=== PATIENT | female | born 1965 | race Caucasian/White ===

== ENCOUNTER 2017-03-24 15:56 | Inpatient (IN) ==
[2017-03-24] MEDS ORDERED: SODIUM CHLORIDE 0.9% 500 ML IV STA (16:38)
[2017-03-24 17:12] LABS: Basophils % 0.4 % (0.0-0.8); Eosinophils # 0.1 10*3/uL (0.0-0.87); Eosinophils % 0.7 % (0.00-10.9); Hematocrit 30.2 VOL% (35.7-47.0); Hemoglobin 9.6 GM/DL (12.0-16.0); Immature Granulocytes % 0.5 %; Immature Granulocytes Absolute 0.04 #; Lymphocytes # 0.8 10*3/uL (1.4-4.0); Lymphocytes % 9.2 % (21.3-54.2); Mean Corpuscular HGB Conc 31.8 GM/DL (32-36); Mean Corpuscular Hemoglobin 28 PG (27-34); Mean Corpuscular Volume 86.8 FL (87-102); Mean Platelet Volume 8.4 FL (9.6-12.0); Monocytes # 0.5 10*3/uL (0.11-0.8); Monocytes % 6.2 % (1.7-12.7); Neutrophils # 6.9 10*3/uL (1.4-7.4); Platelet Count 456 T/CUMM (130-400); Red Blood Count 3.48 MC/CUMM (3.8-5.5); Red Cell Distribution Width 14.6 % (9.3-17.3); White Blood Count 8.3 T/CUMM (4-12)
--- NOTE | 2017-03-24 17:15 | XRay Report ---
Portable chest. Indication: Abdominal pain. No previous study. The heart is normal in size. The pulmonary vasculature is normal. The lung cummings are free of infiltrate. Surgical clips in the upper abdomen. Bilateral breast implants. Normal osseous structures. Impression: No acute abnormality. PROCEDURE INTERPRETED AT [facility] DEPARTMENT OF RADIOLOGY Final Report Signed by: Dr. Sonia Carreno
--- NOTE | 2017-03-24 17:30 | EKG Report ---
Stationary ECG Study [facility] ER Test Date: 03/24/2017 5:30:42 PM Pat Name: ADAMA XIONG Department: Room: Gender: F [employer] In[employer]: : 1965 Requested by: Freddy Rosen Order Number: [id number] Reading MD: RIYA COLON Intervals [place] Rate: 63 P: 79 MI: 141 QRS: 105 QRSD: 92 T: 31 QT: 424 QTc: 431 Interpretive Statements SINUS RHYTHM WITH OCCASIONAL SUPRAVENTRICULAR PREMATURE COMPLEXES MARKED RIGHT AXIS DEVIATION NONSPECIFIC T-WAVE ABNORMALITY Electronically Signed On 03-24-17 19:23:08 CDT by RIYA COLON [email or web address]
--- NOTE | 2017-03-24 17:32 | CT Report ---
CT of the abdomen and pelvis with intravenous contrast. No oral contrast was administered. Axial images were obtained with sagittal and coronal reconstructions. 100 cc Omni 350. Indication: Left upper quadrant abdominal pain. The heart is normal in size. The lung bases are clear. There are bilateral breast implants present. The liver is normal in size and density. The gallbladder has been removed. The intrahepatic ducts are mildly prominent. The common bile duct has a diameter of 9.6 mm. The pancreatic duct is perceptible, but not measurably enlarged. The pancreas is normal in size and enhances normally and uniformly. There is no adrenal enlargement. No renal abnormality is seen. The ureters are normal in course and caliber. The abdominal aorta is of normal caliber. The spleen is normal in size. There is no free air present within the peritoneal cavity. There is minimal free fluid noted. Postsurgical changes are seen around the area of the stomach. The loops of small intestine are not dilated. It is difficult to visualize the appendix due to the total lack of body fat. A portion of the appendix is seen and is of normal caliber and contains air. No definite inflammatory changes in the right lower quadrant. The terminal ileum presents a normal appearance. There is a large amount of fecal material throughout the length of the colon. The rectum is distended with gas. The urinary bladder is distended without wall thickening. No inguinal or iliac chain lymphadenopathy is seen. There is a grade 1 spondylolisthesis of L4 on L5. Degenerative changes are also present. Impression: 1. Prominence of the intrahepatic ducts and extrahepatic ducts, mild in severity. The patient is post cholecystectomy. Sometimes a mild degree of dilatation is seen after cholecystectomy. No definite cause of obstruction detected. 2. Constipation. 3. Small amount of free fluid within the peritoneal cavity. 4. Distention of the urinary bladder. The CT exam was performed using one or more of the following dose reduction techniques: Automated exposure control, adjustment of the mA and/or kV according to patient size, or use of iterative reconstruction technique. PROCEDURE INTERPRETED AT [facility] DEPARTMENT OF RADIOLOGY Final Report Signed by: Dr. Sonia Carreno
[2017-03-24 17:36] LABS: Apearance,Urine CLEAR (Clear); Bilirubin,Urine Negative (Negative); Blood, Urine Negative (Negative); Glucose,Urine (UA) Negative (Negative); Ketones,Urine Negative (Negative); Mucus,Urine Occasional /LPF (Occasional); Nitrite,Urine Negative (Negative); Protein,Urine 30 MG/DL; RBC,Urine 2 /HPF (0-4); Squamous Epithelial Cell,Urine Occasional /HPF (0-10); Urine Color Yellow (Yellow); Urine Specific Gravity 1.033 (1.001-1.035); Urine Urobilinogen < 2.0 EU/DL (0.2-1.0); WBC,Urine 1 /HPF (0-6)
[2017-03-24 17:42] LABS: Alanine Aminotransferase 9 U/L (13-56); Albumin 2.2 G/DL (3.4-5.0); Alkaline Phosphatase 153 U/L (45-117); Aspartate Amino Transferase 13 U/L (0-37); Bilirubin,Total < 0.39 MG/DL (0.2-1.0); Blood Urea Nitrogen 11 MG/DL (7-18); Calcium 8.2 MG/DL (8.5-10.1); Glucose 84 MG/DL (74-106); Magnesium 2.2 MG/DL (1.8-2.4); Osmolality,Calculated 283.8 MOS/KG (273-304); Potassium 3.4 MMOL/L (3.5-5.1); Sodium 144 MMOL/L (136-145); Total Protein 5.9 G/DL (6.4-8.3)
--- NOTE | 2017-03-24 17:58 | Emergency Department Note ---
Isra Dolan Hilary, am scribing for, and in the presence of, Freddy Delaney MD 16:42. Rhett Dolan Phillip K, MD, personally performed the services described in this documentation, ascribed by Margarette Dhaliwal in my presence, and it is both accurate and complete 758 . Arrival - Arrival Chief Complaint: Abdominal / Flank Pain Stated Complaint: abdominal pain ED Nursing Triage Note: Brought in per EMS from [facility] with c/o left upper quadrant abdominal pain onset approx 2 months ago. +nausea/ vomiting. Reports 40# weight loss over past 4 months. Has been seen at [place] [facility] twice recently and diagnosed with bowel obstructions and discharged home. History of gastric bypass in 1999. Mode of Arrival: Stretcher Limitations: No Limitations Source: Patient, RN Notes Reviewed - History of Present Illness HPI Narrative: Pt is a 51 y/o female brought into the ED via EMS from [facility] with c/o left abdominal pain which onset 3 months ago. She reports losing 50lbs in the last 4 months, has been to [place] [facility] twice and diagnosed with bowel obstruction via xray and discharged home. Pt confirms intermittent left abdominal pain, nausea, vomiting, chills, fever, pain worsens with movement. No other complaints or problems stated in the ED. Pt has a PMHx of Gastric bypass ( 1999), and stomach ulcer. Onset (ago): month(s) Consistency: intermittent Severity: severe Severity scale (1-10): 5 Date of Last Menstrual Period: hyst Allergies/Adverse Reactions: Allergies Allergy/AdvReac Type Severity Reaction Status Date / Time codeine Allergy Severe ANAPHYLAXIS Verified 03/24/17 16:23 Amoxicillin Allergy Intermediate ITCHING Verified 03/24/17 16:23 ketoprofen [From Orudis] AdvReac Intermediate Vomiting Verified 03/24/17 16:23 ondansetron AdvReac Intermediate HIVES Verified 03/24/17 16:23 [From Zofran (as hydrochloride)] Sulfa (Sulfonamide AdvReac Intermediate Nausea Verified 03/24/17 16:23 Antibiotics) Home Medications: Home Medications Medication Instructions Recorded Confirmed Type Butalb/Acetaminophen/Caffeine 1 each PO Q4H PRN 03/24/17 03/24/17 History [Kqmaqh-Levfmkky-Gizc 50-325-40] Levothyroxine Tab [Synthroid Tab] 75 mcg PO DAILY 03/24/17 03/24/17 History Pantoprazole Tab [Protonix Tab] 40 mg PO DAILY 03/24/17 03/24/17 History Promethazine Tab [Phenergan Tab] 25 mg PO DAILY 03/24/17 03/24/17 History tiZANidine [Zanaflex] 4 mg PO BEDTIME 03/24/17 03/24/17 History Review of System - Review of System 12 point system: reviewed and no additional remarkable complaints except as stated - Review of System Constitutional: Present: as per HPI, chills, fever, weight loss Gastrointestinal: Present: abdominal pain, nausea, vomiting Medical,Surgical,& Family Hx - Medical History Neurology: No history of: Seizures Gastrointestinal: History of: GI Problems (Stomach Ulcer) - Surgical History Abdominal Surgeries: Surgical HX of: Abdominal Surgery (Partial stomach resection for perferated ulcer), Appendectomy, Gastric Bypass Surgery Reproductive Surgeries: Surgical HX of;: Hysterectomy - Family History Family History: Reports;: Family Cancer (Pancreas) - Social History Smoking Status: Never smoker Frequency of Alcohol Use: None Type of Drug Use: None Exam Vital Signs: Vital Signs Temperature 99.0 F 03/24/17 17:07 Pulse Rate 80 03/24/17 17:07 Respiratory Rate 20 03/24/17 17:07 Blood Pressure 137/55 03/24/17 17:07 O2 Sat by Pulse Oximetry 97 03/24/17 15:56 - General General appearance: alert, in distress, cachectic - Head Head exam: Present: atraumatic, normocephalic - Eye Eye exam: Present: normal appearance, PERRL, EOMI - ENT ENT exam: Present: mucous membranes dry, TM's normal bilaterally. Absent: mucous membranes moist - Neck Neck exam: Present: full ROM, trachea midline. Absent: tenderness - Chest Chest inspection: Present: symmetric chest wall rise. Absent: tenderness - Respiratory Respiratory exam: Present: normal lung sounds bilaterally. Absent: respiratory distress - Cardiovascular Cardiovascular exam: Present: regular rate, irregular rhythm, normal heart sounds. Absent: murmur, rubs, gallop - Abdominal Exam Abdominal exam: Present: soft, tenderness (LUQ tenderness to palpation deferred to the right), normal bowel sounds. Absent: distention - Rectal Exam Rectal exam: Present: heme (+) stool - Extremities Exam Extremities exam: Present: full ROM. Absent: tenderness, pedal edema - Back Exam Back exam: Present: full ROM. Absent: tenderness - Neurological Exam Neurological exam: Present: alert, oriented X3, CN II-XII intact. Absent: motor sensory deficit - Psychiatric Psychiatric exam: Present: normal affect, normal mood - Skin Skin exam: Present: warm, dry, intact, normal color. Absent: rash Course Course Narrative: Patient discussed with the hospitalist Results - Labs CBC & BMP: 03/24/17 16:57 03/24/17 16:57 Lab Results: I have reviewed the patients labs Labs: Laboratory Tests 03/24/17 03/24/17 16:57 17:05 WBC 8.3 RBC 3.48 L Hgb 9.6 L Hct 30.2 L MCV 86.8 L MCHC 31.8 L Plt Count 456 H MPV 8.4 L Neut % (Auto) 83.0 H Lymph % (Auto) 9.2 L Lymph # (Auto) 0.8 L POC Creatinine 0.81 POC Estimated GFR (eGFR) > 60 Laboratory Tests 03/24/17 03/24/17 16:38 16:57 Sodium 144 Potassium 3.4 L Chloride 109 H Carbon Dioxide 29 BUN 11 Creatinine 0.50 L BUN/Creatinine Ratio 22.00 H Calcium 8.2 L ALT 9 L Alkaline Phosphatase 153 H Total Protein 5.9 L Albumin 2.2 L Globulin 3.7 H Albumin/Globulin Ratio 0.5 L Urine pH 5.0 Ur Specific [place] 1.033 Urine Protein 30 Urine Urobilinogen < 2.0 H Urine RBC 2 Urine WBC 1 - EKG EKG results: interpreted by ERMKorin, sinus rhythm (Nonspecific ST-T changes) - Diagnostic Findings Procedure: Chest x-ray: report reviewed by me (no acute abnormality), CT: report reviewed by me (ABDOMEN AND PELVIS: 1. Prominence of the intrahepatic ducts and extrahepatic ducts, mild in severity. The patient is post cholecystectomy. Sometiems a mild degree of dilatation is seen after cholecystectomy. No definite cause of obstruction detected. 2. Constipation 3. Small amount of free fluid within the peritoneal cavity 4. Distention of urinary bladder) Disposition Clinical Impression: Abdominal pain, Anemia, Weight loss questionable etiology Case discussed with: patient Disposition: Still a Patient Condition: Guarded Additional Instructions: Admit to the hospitalist
--- NOTE | 2017-03-24 18:42 | Hospitalist History & Physical ---
Assessment and Plan (1) Heme positive stool Status: Acute Current Visit: Yes (2) Chronic nausea and vomiting Status: Acute Current Visit: Yes (3) Abdominal pain Status: Acute Current Visit: Yes (4) Anemia Status: Acute Assessment and plan: Our plan for this patient will be admitting her to our service. She does have a heme positive stool do not feel this is acute. We will get GI to evaluate her. We will placed on a monitor and have her counts checked in the morning. Provide pain control. And nausea control. Check a KUB that has already been ordered reevaluate patient in the morning just plans appropriate Current Visit: Yes History of Present Illness Chief complaint: Abdominal pain History of present illness: Ms. Mcneil is a 51 year old female with past medical history significant for chronic back pain and abdominal pain who presents with a several month history of abdominal pain. She says for the past 4 months she has lost 50 pounds. She was seen at the [facility] on 03/13/2017 at that time she did have a CT scan that showed surgical changes from previous bariatric surgery are present and are somewhat difficult difficult to discern secondary to thickness of the axial slice acquisition. There is nonspecific evidence of bowel wall or gastric wall thickening to suggest inflammation. Multiple anastomosis is present without evidence of leakage distinct evidence of extraluminal fluid collection no acute findings. Patient was released from the emergency room was not admitted she has been dealing with the pain and went to the clinic today and was referred to our hospital from the clinic Home Medications Medication Instructions Recorded Confirmed Type Butalb/Acetaminophen/Caffeine 1 each PO Q4H PRN 03/24/17 03/24/17 History [Vekdvd-Tvzjykwl-Fzix 50-325-40] Levothyroxine Tab [Synthroid Tab] 75 mcg PO DAILY 03/24/17 03/24/17 History Pantoprazole Tab [Protonix Tab] 40 mg PO DAILY 03/24/17 03/24/17 History Promethazine Tab [Phenergan Tab] 25 mg PO DAILY 03/24/17 03/24/17 History tiZANidine [Zanaflex] 4 mg PO BEDTIME 03/24/17 03/24/17 History Allergies Allergy/AdvReac Type Severity Reaction Status Date / Time codeine Allergy Severe ANAPHYLAXIS Verified 03/24/17 16:23 Amoxicillin Allergy Intermediate ITCHING Verified 03/24/17 16:23 ketoprofen [From Orudis] AdvReac Intermediate Vomiting Verified 03/24/17 16:23 ondansetron AdvReac Intermediate HIVES Verified 03/24/17 16:23 [From Zofran (as hydrochloride)] Sulfa (Sulfonamide AdvReac Intermediate Nausea Verified 03/24/17 16:23 Antibiotics) Medical,Surgical,& Family Hx - Medical History Neurology: History of: Migraine No history of: Seizures Endocrine: History of: Thyroid Disorder Gastrointestinal: History of: GI Problems (Stomach Ulcer) Musculoskeletal: History of: Back/Neck Problems (chronic back pain) Hematology: History of: Anemia - Surgical History Abdominal Surgeries: Surgical HX of: Abdominal Surgery (Partial stomach resection for perferated ulcer), Appendectomy, Cholecystectomy, Gastric Bypass Surgery Reproductive Surgeries: Surgical HX of;: Breast Surgery (breast reduction/ breast implants), Hysterectomy - Family History Family History: Reports;: Family Cancer (Pancreas) - Social History Smoking Status: Never smoker Frequency of Alcohol Use: None Type of Drug Use: None 12 point system: reviewed and no additional remarkable complaints except as stated Exam - Constitutional Vitals: Period Temp Pulse Resp BP Sys/Mann Pulse Ox Last 24 Hr 99.0 F-99.0 F 80-80 20-20 137-137/55-55 97 General appearance: under weight - Head Head exam: Present: normal inspection - Eye Eye exam: Present: EOMI Pupils: Present: ROSIE - ENT ENT exam: Present: normal exam - Neck Neck exam: Present: normal inspection - Respiratory Respiratory exam: Present: clear to auscultation bilaterally - Cardiovascular Cardiovascular exam: Present: regular rate and rhythm - GI/Abdominal GI/Abdominal exam: Present: tenderness, other (Heme positive). Absent: rebound - Extremities Exam Extremities exam: Present: normal inspection - Back Exam Back exam: Present: normal inspection - Neurological Exam Neurological exam: Present: alert, oriented X3 - Psychiatric Psychiatric exam: Present: normal affect, normal mood Results - Labs CBC & BMP: 03/24/17 16:57 03/24/17 16:57
[2017-03-24] MEDS ORDERED: ACETAMINOPHEN 325 MG TABLET PO PRN (18:48)
[2017-03-24] MEDS ORDERED: PROMETHAZINE 25 MG/1 ML VIAL IM STA (18:51)
[2017-03-24] MEDS ORDERED: PROMETHAZINE 25 MG/1 ML VIAL ONE (19:28)
[2017-03-24] MEDS: DOCUSATE SODIUM 100 MG CAPSULE PO SCH (20:43)
[2017-03-24] MEDS: tiZANidine 4 MG TABLET PO SCH (20:43)
[2017-03-24] MEDS: POTASSIUM CHLORIDE INJ 20 MEQ in SODIUM CHLORIDE 0.45% 1,000 ML IV SCH (21:10)
[2017-03-25] MEDS: MORPHINE 2 MG/1 ML SYRINGE IV PRN ×2 (00:08→04:24)
[2017-03-25] MEDS: PROMETHAZINE 25 MG/1 ML VIAL IM PRN ×4 (04:22→20:36)
[2017-03-25 06:30] LABS: Basophils % 0.3 % (0.0-0.8); Eosinophils # 0.2 10*3/uL (0.0-0.87); Eosinophils % 2.1 % (0.00-10.9); Hematocrit 33.3 VOL% (35.7-47.0); Hemoglobin 10.6 GM/DL (12.0-16.0); Immature Granulocytes % 0.5 %; Immature Granulocytes Absolute 0.04 #; Lymphocytes # 1.1 10*3/uL (1.4-4.0); Lymphocytes % 14.6 % (21.3-54.2); Mean Corpuscular HGB Conc 31.8 GM/DL (32-36); Mean Corpuscular Hemoglobin 28 PG (27-34); Mean Corpuscular Volume 86.7 FL (87-102); Mean Platelet Volume 8.6 FL (9.6-12.0); Monocytes # 0.7 10*3/uL (0.11-0.8); Monocytes % 8.6 % (1.7-12.7); Neutrophils # 5.7 10*3/uL (1.4-7.4); Neutrophils % 73.9 % (38.7-73.9); Platelet Count 513 T/CUMM (130-400); Red Blood Count 3.84 MC/CUMM (3.8-5.5); Red Cell Distribution Width 14.7 % (9.3-17.3); White Blood Count 7.7 T/CUMM (4-12)
[2017-03-25 07:08] LABS: Albumin 2.3 G/DL (3.4-5.0); Bilirubin,Total 0.4 MG/DL (0.2-1.0); Calcium 8.6 MG/DL (8.5-10.1)
[2017-03-25] MEDS: HYDROmorphone 2 MG/1 ML VIAL IV PRN ×4 (08:03→20:34)
[2017-03-25] MEDS ORDERED: PANTOPRAZOLE 40 MG TABLET PO SCH (09:00)
--- NOTE | 2017-03-25 09:19 | XRay Report ---
KUB portable. Indication: Generalized abdominal pain. The heart is normal in size. The lung bases are clear. There is considerable fecal material within the colon. Numerous surgical clips are present. Possible air in the urinary bladder. Osseous structures are unremarkable. Impression: Persistent findings of constipation. Possible air in the urinary bladder. The bladder was distended yesterday. Has the patient been catheterized? PROCEDURE INTERPRETED AT [facility] DEPARTMENT OF RADIOLOGY Final Report Signed by: Dr. Sonia Carreno
[2017-03-25] MEDS ORDERED: MAGNESIUM CITRATE 300 ML BOTTLE PO ONE (09:54)
[2017-03-25] MEDS: POTASSIUM CHLORIDE INJ 20 MEQ in SODIUM CHLORIDE 0.45% 1,000 ML IV SCH ×2 (11:06→21:05)
--- NOTE | 2017-03-25 11:28 | Hospitalist Progress Note ---
Assessment and Plan (1) Abdominal pain Status: Acute Assessment and plan: not an acute abdomen per Dr. Flores, may have ulcers. GI cocktail, calmed down on dilaudid. Cont protonix bid, Dr. Reid consulted, [place] for distended bladder. Current Visit: Yes (2) Narcotic dependency, continuous Status: Acute Current Visit: Yes (3) Anemia Status: Acute Assessment and plan: stable Current Visit: Yes (4) Heme positive stool Status: Acute Assessment and plan: full of stool due to narcotics, miralax and mag citrate. Current Visit: Yes (5) Chronic nausea and vomiting Status: Acute Assessment and plan: controlled with phenergan, cont protonix, hx of bypass surgery. dr. Reid consulted Current Visit: Yes Hospitalist: Subjective Interval history: Called by nursing early this morning the patient was in excruciating pain that was not relieved with morphine. Patient chronically sees Dr. Morataya. She has had bypass surgery before and I have discussed her case with Dr. Flores personally. He reports a lot of these patients have problems with ulcers following the surgeries. But her amount of pain is out of proportion to the way patient should act with ulcer pain. Patient does not have an acute abdomen per Dr. Flores. Exam - Constitutional Vitals: Period Temp Pulse Resp BP Sys/Mann Pulse Ox Last 24 Hr 97.6 F-99.0 F 50-82 16-20 124-137/55-70 93-97 Exam: Heart Rate-[RRR] Lungs-[CTAB] GI-[+bs tender in the left upper quadrant Ext-[no edema] Neuro [Motor 5/5], [alert and oriented times 3] psych [agitated mood and affect] General [ acute emotional distress] Results - Labs CBC & BMP: 03/25/17 06:07 03/25/17 06:07 Lab Results: I have reviewed the past 24 hour labs - Diagnostic Findings Procedure: KUB x-ray: report reviewed by me (A lot of stool), CT Abdomen and Pelvis: report reviewed by me (Prominence of the intrahepatic and extrahepatic ducts and severe constipation and distention of the urinary bladder) Quality Measures - VTE Contraindication to Pharmacological VTE Prophylaxis: Active Bleeding
[2017-03-25] MEDS ORDERED: POLYETHYLENE GLYCOL POWDER 255 GM BOTTLE PO ONE (11:35)
--- NOTE | 2017-03-25 11:49 | General Surgery Consult Note ---
Assessment and Plan (1) Abdominal pain Status: Acute Assessment and plan: This does not represent a surgical abdomen. I think the most likely etiology would probably be ulcer disease since she has had this before she has had a gastric bypass. GI has already been consulted. We will add Carafate and Protonix to see if this helps at all in the meantime. I am also going to order vitamin supplementation and IV fluids given the patient's apparent malnutrition with underweight status and deficiencies can be pretty severe with gastric bypass patient does not keep up with her vitamin needs. Current Visit: Yes History of Present Illness Chief complaint: Abdominal pain History of present illness: Ms. Mcneil is a 51 year old female with a history of chronic pain as well as gastric bypass with history of ulcer disease at her anastomotic sites who presents to the hospital with abdominal pain. CT scan showed multiple anastomosis from gastric bypass but no evidence of obstruction. The patient had a normal lipase and normal bilirubin. She has had a cholecystectomy and has some expected bile duct dilation secondary to this. Her pain is mostly located in the left upper quadrant she says it feels different than the ulcer disease she has had in the past. Home Medications Medication Instructions Recorded Confirmed Type Butalb/Acetaminophen/Caffeine 1 each PO Q4H PRN 03/24/17 03/25/17 History [Jhayjr-Gnirdplw-Jnhy 50-325-40] Levothyroxine Tab [Synthroid Tab] 75 mcg PO DAILY 03/24/17 03/25/17 History Pantoprazole Tab [Protonix Tab] 40 mg PO DAILY 03/24/17 03/25/17 History Promethazine Tab [Phenergan Tab] 25 mg PO DAILY 03/24/17 03/25/17 History tiZANidine [Zanaflex] 4 mg PO BEDTIME 03/24/17 03/25/17 History Albuterol Sulfate [Proair HFA] 90 mcg INH QID PRN 03/25/17 03/25/17 History Sucralfate Liquid [Carafate Liquid] 1 gm PO QID 03/25/17 03/25/17 History fentaNYL 25 MCG/HR PATCH 1 each TRANSDERM Q3DAY 03/25/17 03/25/17 History [Duragesic 25 Patch] Allergies Allergy/AdvReac Type Severity Reaction Status Date / Time codeine Allergy Severe ANAPHYLAXIS Verified 03/24/17 16:23 Amoxicillin Allergy Intermediate ITCHING Verified 03/24/17 16:23 ketoprofen [From Orudis] AdvReac Intermediate Vomiting Verified 03/24/17 16:23 ondansetron AdvReac Intermediate HIVES Verified 03/24/17 16:23 [From Zofran (as hydrochloride)] Sulfa (Sulfonamide AdvReac Intermediate Nausea Verified 03/24/17 16:23 Antibiotics) Medical,Surgical,& Family Hx - Medical History Cardio: Comment Only: Cardiovascular Problems (pt states," I have a heart murrmur) Neurology: History of: Migraine No history of: Seizures Endocrine: History of: Thyroid Disorder Gastrointestinal: History of: GI Problems (Stomach Ulcer) Musculoskeletal: History of: Back/Neck Problems (chronic back pain) Hematology: History of: Anemia - Surgical History Abdominal Surgeries: Surgical HX of: Abdominal Surgery (Partial stomach resection for perferated ulcer), Appendectomy, Cholecystectomy, Gastric Bypass Surgery Reproductive Surgeries: Surgical HX of;: Breast Surgery (breast reduction/ breast implants), Hysterectomy Orthopedic Surgeries: Surgical HX of;: Orthopedic Surgery (ankle surgery 2007) - Family History Family History: Reports;: Family Cancer (Pancreas), Family Heart Disease (both sides of family), Family Stroke (both sides of family) - Social History Smoking Status: Never smoker Frequency of Alcohol Use: None Type of Drug Use: None - Constitutional Constitutional: Present: as per HPI - EENT Nose, mouth and throat: Present: as per HPI - Cardiovascular Cardiovascular: Present: as per HPI - Respiratory Respiratory: Present: as per HPI - Gastrointestinal Gastrointestinal: Present: as per HPI - Genitourinary Genitourinary: Present: as per HPI - Musculoskeletal Musculoskeletal: Present: as per HPI - Neurological Neurological: Present: as per HPI - Endocrine Endocrine: Present: as per HPI Hematologic/Lymphatic: Present: as per HPI Exam - Constitutional Vitals: Period Temp Pulse Resp BP Sys/Mann Pulse Ox Last 24 Hr 97.6 F-99.0 F 50-82 16-20 124-137/55-70 93-97 General appearance: no acute distress, under weight - Head Head exam: Present: normal inspection, normocephalic - Eye Eye exam: Present: EOMI Pupils: Present: ROSIE - ENT ENT exam: Present: normal exam Mouth exam: Present: normal external inspection, normal voice - Neck Neck exam: Present: normal inspection, trachea midline - Respiratory Respiratory exam: Present: clear to auscultation bilaterally. Absent: accessory muscle use, chest wall tenderness - Cardiovascular Cardiovascular exam: Present: RRR. Absent: systolic murmur, tachycardia - GI/Abdominal GI/Abdominal exam: Present: tenderness (Tenderness in the left upper quadrant with no peritoneal signs), soft. Absent: guarding, rebound - Extremities Exam Extremities exam: Present: normal inspection, normal capillary refill - Back Exam Back exam: Present: normal inspection - Neurological Exam Neurological exam: Present: alert, oriented X3 Speech: Present: normal - Skin Skin exam: Present: normal color, warm Quality Measures - VTE Contraindication to Pharmacological VTE Prophylaxis: Active Bleeding Results - Labs CBC & BMP: 03/25/17 06:07 03/25/17 06:07 - Diagnostic Findings Procedure: CT Abdomen and Pelvis: image reviewed by me, report reviewed by me ( No acute pathology seen)
[2017-03-25] MEDS ORDERED: THIAMINE INJ 100 MG, FOLIC ACID INJ 1 MG, MULTIVITAMIN INJ 10 ML in SODIUM CHLORIDE 0.9... IV ONE (12:50)
--- NOTE | 2017-03-25 13:52 | Gastrointestinal Consult Note ---
Assessment and Plan - Time spent with patient Time spent with patient: Greater than 30 minutes (1) Abdominal pain Status: Acute Current Visit: Yes (2) Other specified counseling Status: Acute Current Visit: Yes History of Present Illness History of present illness: Ms. Mcneil is a 51 year old female Home Medications Medication Instructions Recorded Confirmed Type Butalb/Acetaminophen/Caffeine 1 each PO Q4H PRN 03/24/17 03/25/17 History [Avyvrf-Nacwsxcf-Kiib 50-325-40] Levothyroxine Tab [Synthroid Tab] 75 mcg PO DAILY 03/24/17 03/25/17 History Pantoprazole Tab [Protonix Tab] 40 mg PO DAILY 03/24/17 03/25/17 History Promethazine Tab [Phenergan Tab] 25 mg PO DAILY 03/24/17 03/25/17 History tiZANidine [Zanaflex] 4 mg PO BEDTIME 03/24/17 03/25/17 History Albuterol Sulfate [Proair HFA] 90 mcg INH QID PRN 03/25/17 03/25/17 History Sucralfate Liquid [Carafate Liquid] 1 gm PO QID 03/25/17 03/25/17 History fentaNYL 25 MCG/HR PATCH 1 each TRANSDERM Q3DAY 03/25/17 03/25/17 History [Duragesic 25 Patch] Allergies Allergy/AdvReac Type Severity Reaction Status Date / Time codeine Allergy Severe ANAPHYLAXIS Verified 03/24/17 16:23 Amoxicillin Allergy Intermediate ITCHING Verified 03/24/17 16:23 ketoprofen [From Orudis] AdvReac Intermediate Vomiting Verified 03/24/17 16:23 ondansetron AdvReac Intermediate HIVES Verified 03/24/17 16:23 [From Zofran (as hydrochloride)] Sulfa (Sulfonamide AdvReac Intermediate Nausea Verified 03/24/17 16:23 Antibiotics) Medical,Surgical,& Family Hx - Medical History Cardio: Comment Only: Cardiovascular Problems (pt states," I have a heart murrmur) Neurology: History of: Migraine No history of: Seizures Endocrine: History of: Thyroid Disorder Gastrointestinal: History of: GI Problems (Stomach Ulcer) Musculoskeletal: History of: Back/Neck Problems (chronic back pain) Hematology: History of: Anemia - Surgical History Abdominal Surgeries: Surgical HX of: Abdominal Surgery (Partial stomach resection for perferated ulcer), Appendectomy, Cholecystectomy, Gastric Bypass Surgery Reproductive Surgeries: Surgical HX of;: Breast Surgery (breast reduction/ breast implants), Hysterectomy Orthopedic Surgeries: Surgical HX of;: Orthopedic Surgery (ankle surgery 2007) - Family History Family History: Reports;: Family Cancer (Pancreas), Family Heart Disease (both sides of family), Family Stroke (both sides of family) - Social History Smoking Status: Never smoker Frequency of Alcohol Use: None Type of Drug Use: None Exam - Constitutional Vitals: Period Temp Pulse Resp BP Sys/Mann Pulse Ox Last 24 Hr 97.6 F-99.0 F 50-82 16-20 124-137/55-70 93-97 Results - Labs CBC & BMP: 03/25/17 06:07 03/25/17 06:07 Quality Measures - VTE Contraindication to Pharmacological VTE Prophylaxis: Active Bleeding Note Addendum: PLEASE NOTE -- automatic citation of patient information is unavoidable in this electronic note. I have made a reasonable effort to review the information cited , but it is not a part of my evaluation, impression, or recommendation unless specifically discussed in the dictated text that follows. As well, voice recognition software was used in the creation of this clinical note. Reasonable effort was made to identify and correct gross errors. Despite proofreading, errors in administrative assistant may be present, including nonsense verbiage at times. If you encounter such an error, please contact me at for discussion and correction. -- Jeanette Chief complaint: abdominal pain, positive fecal occult blood test History of present illness: This is a new patient, a 51-year-old female seen by consultation for evaluation of abdominal pain. The patient is admitted to the hospitalist service under the care of Dr. Abrams with diagnoses of nausea and vomiting, abdominal pain, anemia, indicating positive stools. The patient was admitted yesterday through the emergency department with primary complaint of abdominal pain for several months. Evaluation at that time revealed mild anemia with hemoglobin less than 10 g/dL mild elevation in alkaline phosphatase, and intra/extrahepatic dilation of the biliary system, minimal, status post cholecystectomy. The patient reports a visit to the emergency department at [place] about two weeks ago with similar complaints. CT scan at that time revealed surgical changes from a previous surgery as well as nonspecific evidence of small bowel or gastric wall thickening. The patient has not had follow-up since that emergency department visit. She has been treated, primarily, supportively since her admission and now reports that the pain persists. She notes that it has been going on constantly for at least two months, sharp quality, severe, waxing/waiting over the course of any particular day, unrelieved by any identifiable measure, unrelated to body position, and equivocal he exacerbated by PO intake. She has also had significant nausea and vomiting during this period and notes that she has lost 50 pounds over the last several months ( baseline 140 pounds about one year ago). 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 She does not recall any francisco javier-surgical complications but does note that she had a stomach ulcer requiring surgical revision about five years ago. She also notes that she was severely malnourished at that time. She has not had upper endoscopy since that event five years ago. She had colonoscopy about 25 years ago with no finding. Patient denies fever, chills, night sweats, rigors, headache, dizziness, neck pain, visual changes, redness of the eyes, dysphagia, odynophagia, difficulty chewing, chest pain, shortness of breath, hematemesis, diarrhea, hematochezia, melena, proctalgia, constipation, change in bowel pattern generally, dysuria, skin changes, temperature regulation issues, flushing, easy bleeding/bruising, musculoskeletal pain, mental status change, numbness/weakness in the extremities , yellowing of the eyes/skin, cutaneous eruptions, and other complaints in general. Review of systems: 12 point review of systems was negative except as documented above. Outpatient medications: Fioricet, Synthroid, Protonix, Phenergen, Zanaflex Inpatient medications: reviewed Past Medical History: migraine, thyroid disorder, gastric ulcer status post partial gastrectomy, chronic back pain, anemia Social history: negative tobacco. Negative alcohol Family history: pancreatic cancer in Physical examination: Vital Signs: Current vital signs reviewed and documented above. General Appearance: Cachectic, uncomfortable appearing, lying in bed, conversant , no acute distress. Head: Normocephalic. Neck: Palpation of the neck revealed no abnormalities. Eyes: No scleral icterus. No scleral injection. No conjunctival pallor. Oral Cavity: Odor of breath was normal. No drooling was observed. Lips showed no abnormalities. Floor of the mouth showed no abnormalities. Pharynx: Oropharynx was normal. Lungs: Respiration rhythm and depth was normal. Cardiovascular: Heart rate and rhythm were normal. Abdomen: abdomen was not distended. Abdominal palpation revealed diffuse tenderness with voluntary guarding but no hepatosplenomegaly. Ascites was not discovered. Abdominal auscultation revealed positive bowel sounds. Musculoskeletal System: Musculoskeletal system was grossly normal. Neurological: level of consciousness was normal. Speech was normal. Skin: General appearance was normal. Color and pigmentation were normal. No skin lesions. Laboratory: white blood count 7.7, hemoglobin 10.6, platelets 513, ALT 12, AST 20, phosphatase 177, total protein 6.0, albumin 2.3, lipase 162 Radiology: CT of the abdomen and pelvis -- mild dilation of the interest/ extrahepatic bile ducts; absent gallbladder; significant retain stool in the large intestine Impressions: 1. Abdominal pain -- the differential diagnosis includes peptic ulcer, gastritis /esophagitis generally, gastric outlet obstruction (partial or complete), pancreatic or biliary disease, and functional abdominal pain. CT scan was non- diagnostic. The next most reasonable study would be endoscopic evaluation. We will plan this for Monday. In the interim, I recommend continued proton inhibitor, clear liquid diet to the extent tolerated, and continued supportive care. 2. Malnutrition -- the patient has lost 50 pounds, by her report, over the past year, perhaps even over the past two months. She is cachectic with complete loss of mesenteric fat and other fat pads. This has the potential to lead to poor gut flow with adjacent structures impinging on lumen, particularly in the setting of multiple abdominal surgeries. I recommend aggressive nutritional management both during this admission and in the outpatient setting. If patient continues unable to take oral intake, TPN should be considered. 3. other specified counseling -- The patient was seen for greater than 30 minutes. The patient was counseled for greater than 50% of this time regarding differential diagnosis, likely diagnosis, diagnostic and therapeutic alternatives, risks/benefits/alternatives of medications and procedures, and plan of care generally. The patient expressed understanding and wishes to proceed. Recommendations: -- aggressive volume and electrolyte management -- continue proton pump inhibitor -- upper endoscopy with timing based on clinical progress, likely Monday -- clear liquid diet as tolerated -- aggressive nutritional management both during this admission and after discharge -- consider initiation of TPN -- thank you for this consultation. We will follow with you
[2017-03-25] MEDS: LEVOTHYROXINE 75 MCG TABLET PO SCH (15:26)
[2017-03-25] MEDS: PROMETHAZINE 25 MG TABLET PO SCH (15:26)
[2017-03-25] MEDS: DOCUSATE SODIUM 100 MG CAPSULE PO SCH ×2 (15:26→20:34)
[2017-03-25] MEDS: ALUM/MAG/SIMETH/LIDO VISC 1:1 30 ML BOTTLE PO SCH ×3 (17:06→22:54)
[2017-03-25] MEDS: SUCRALFATE 1 GM/10 ML UDCUP PO SCH (17:44)
[2017-03-25] MEDS: tiZANidine 4 MG TABLET PO SCH (20:34)
[2017-03-25] MEDS: PANTOPRAZOLE 40 MG TABLET PO SCH (20:37)
[2017-03-26] MEDS: HYDROmorphone 2 MG/1 ML VIAL IV PRN ×4 (01:23→21:10)
[2017-03-26] MEDS: ALUM/MAG/SIMETH/LIDO VISC 1:1 30 ML BOTTLE PO SCH ×4 (05:13→23:20)
[2017-03-26] MEDS: PROMETHAZINE 25 MG/1 ML VIAL IM PRN ×2 (05:13→14:55)
[2017-03-26] MEDS: PANTOPRAZOLE 40 MG TABLET PO SCH ×2 (09:15→21:10)
[2017-03-26] MEDS: DOCUSATE SODIUM 100 MG CAPSULE PO SCH ×2 (09:15→21:10)
[2017-03-26] MEDS: PROMETHAZINE 25 MG TABLET PO SCH (09:15)
[2017-03-26] MEDS: SUCRALFATE 1 GM/10 ML UDCUP PO SCH ×2 (09:15→17:10)
[2017-03-26] MEDS: LEVOTHYROXINE 75 MCG TABLET PO SCH (09:15)
--- NOTE | 2017-03-26 09:27 | General Surgery Progress Note ---
Assessment and Plan (1) Abdominal pain Status: Acute Assessment and plan: No surgical intervention is planned. Agree with endoscopy tomorrow. Current Visit: Yes Subjective Patient reports: Present: no new complaints, still having pain, afebrile Exam - Constitutional Vitals: Period Temp Pulse Resp BP Sys/Mann Pulse Ox Last 24 Hr 97 F-98.4 F 67-83 16-20 95-124/61-71 95-98 General appearance: under weight - Head Head exam: Present: normal inspection, normocephalic - Eye Eye exam: Present: EOMI Pupils: Present: RSOIE - ENT ENT exam: Present: normal exam Mouth exam: Present: normal external inspection, normal voice - Neck Neck exam: Present: normal inspection, trachea midline - Respiratory Respiratory exam: Present: clear to auscultation bilaterally. Absent: accessory muscle use, chest wall tenderness - Cardiovascular Cardiovascular exam: Present: RRR. Absent: systolic murmur, tachycardia - GI/Abdominal GI/Abdominal exam: Present: normal bowel sounds, guarding, tenderness (Left upper quadrant tenderness focal), soft. Absent: rebound - Extremities Exam Extremities exam: Present: normal inspection, normal capillary refill - Back Exam Back exam: Present: normal inspection - Neurological Exam Neurological exam: Present: alert, oriented X3 Speech: Present: normal - Skin Skin exam: Present: normal color, warm Results - Labs CBC & BMP: 03/25/17 06:07 03/25/17 06:07 Quality Measures - VTE Contraindication to Pharmacological VTE Prophylaxis: Active Bleeding
[2017-03-26] MEDS ORDERED: oxyCODONE/ACETAMINOPHEN 5-325 MG TABLET PO PRN (09:47)
[2017-03-26] MEDS ORDERED: MORPHINE 2 MG/1 ML SYRINGE IV PRN (09:47)
--- NOTE | 2017-03-26 10:36 | Hospitalist Progress Note ---
Assessment and Plan (1) Abdominal pain Status: Acute Assessment and plan: cont GI cocktail, EGD in am, morphone alternating with percocet Current Visit: Yes (2) Narcotic dependency, continuous Status: Acute Assessment and plan: see HPI Current Visit: Yes (3) Anemia Status: Acute Assessment and plan: stable, will check iron studies and b12 and mg. noncompliance with vitamins Current Visit: Yes (4) Chronic nausea and vomiting Status: Acute Assessment and plan: resolved, patient had bypass in 1999. Advance to full liquids. Current Visit: Yes Hospitalist: Subjective Interval history: Dr. Flores is seen her today. When he walked in she was texting and smiling but immediately started asking for pain medicines when she saw him. Patient may have an ulcer in an EGD is warranted in a.m. I have spoken with Dr. Reid. We do not intend to put her on TPN. Patient will be discharged after EGD. She is narcotic seeking and narcotic addicted. We are switching from Dilaudid to morphine and her request. She wanted 10 mg of morphine which is way too much. Her pain is chronic more than acute. Ulcers are not treated with narcotics. She should be discharged as soon as possible Exam - Constitutional Vitals: Period Temp Pulse Resp BP Sys/Mann Pulse Ox Last 24 Hr 97 F-98.4 F 67-83 16-20 95-124/61-71 95-98 Exam: Heart Rate-[RRR] Lungs-[CTAB] GI-[+bs tender in the left upper quadrant Ext-[no edema] Neuro [Motor 5/5], [alert and oriented times 3] psych [normal mood and affect] General [ no acute emotional distress] Results - Labs CBC & BMP: 03/25/17 06:07 03/25/17 06:07 Lab Results: I have reviewed the past 24 hour labs Quality Measures - VTE Contraindication to Pharmacological VTE Prophylaxis: Active Bleeding
[2017-03-26] MEDS: POTASSIUM CHLORIDE INJ 20 MEQ in SODIUM CHLORIDE 0.45% 1,000 ML IV SCH ×2 (10:38→21:13)
[2017-03-26 10:58] LABS: % Iron Saturation 11.7 % (18-50); Magnesium 2.5 MG/DL (1.8-2.4)
[2017-03-26 11:09] LABS: Folate 17.5 NG/ML (5.4-24.0)
--- NOTE | 2017-03-26 11:32 | Gastrointestinal Progress Note ---
Assessment and Plan (1) Abdominal pain Status: Acute Current Visit: Yes (2) Malnutrition Status: Acute Current Visit: Yes (3) Other specified counseling Status: Acute Current Visit: Yes Exam (Progress Note) - Constitutional Vitals: Period Temp Pulse Resp BP Sys/Mann Pulse Ox Last 24 Hr 97 F-98.4 F 65-83 16-20 95-117/61-71 95-98 Results - Labs CBC & BMP: 03/25/17 06:07 03/25/17 06:07 Note Addendum: PLEASE NOTE -- automatic citation of patient information is unavoidable in this electronic note. I have made a reasonable effort to review the information cited , but it is not a part of my evaluation, impression, or recommendation unless specifically discussed in the dictated text that follows. As well, voice recognition software was used in the creation of this clinical note. Reasonable effort was made to identify and correct gross errors. Despite proofreading, errors in technical support agent may be present, including nonsense verbiage at times. If you encounter such an error, please contact me at for discussion and correction. -- Jeanette Chief complaint: abdominal pain, positive fecal occult blood test History of present illness: This is a follow-up patient, a 51-year-old female seen for evaluation of abdominal pain. The patient reports continued pain in a similar pattern as previously described. She is taking some oral nutrition. She has no bowel movements noted. Review of systems: 12 point review of systems was negative except as documented above. Medications: Tylenol, Colace, Synthroid, G.I. cocktail, morphine sulfate, Percocet, Protonix, potassium chloride, Phenergen, Carafate, Zanaflex Physical examination: Vital Signs: Current vital signs reviewed and documented above. General Appearance: Cachectic, uncomfortable appearing, lying in bed, conversant , no acute distress. Head: Normocephalic. Neck: Palpation of the neck revealed no abnormalities. Eyes: No scleral icterus. No scleral injection. No conjunctival pallor. Oral Cavity: Odor of breath was normal. No drooling was observed. Lips showed no abnormalities. Floor of the mouth showed no abnormalities. Pharynx: Oropharynx was normal. Lungs: Respiration rhythm and depth was normal. Cardiovascular: Heart rate and rhythm were normal. Abdomen: abdomen was not distended. Abdominal palpation revealed diffuse tenderness with voluntary guarding but no hepatosplenomegaly. Ascites was not discovered. Abdominal auscultation revealed positive bowel sounds. Musculoskeletal System: Musculoskeletal system was grossly normal. Neurological: level of consciousness was normal. Speech was normal. Skin: General appearance was normal. Color and pigmentation were normal. No skin lesions. Laboratory: reviewed Radiology: CT of the abdomen and pelvis -- mild dilation of the interest/ extrahepatic bile ducts; absent gallbladder; significant retain stool in the large intestine Impressions: 1. Abdominal pain -- the differential diagnosis is unchanged. We will plan upper endoscopy tomorrow Monday. In the interim, I recommend continued proton inhibitor, clear liquid diet to the extent tolerated, and continued supportive care. 2. Malnutrition -- the patient has lost 50 pounds, by her report, over the past year, perhaps even over the past two months. She is cachectic with complete loss of mesenteric fat and other fat pads. This has the potential to lead to poor gut flow with adjacent structures impinging on lumen, particularly in the setting of multiple abdominal surgeries. I recommend aggressive nutritional management both during this admission and in the outpatient setting. If patient continues unable to take oral intake, TPN should be considered. 3. other specified counseling -- The patient was seen for less than 30 minutes. The patient was counseled for greater than 50% of this time regarding differential diagnosis, likely diagnosis, diagnostic and therapeutic alternatives, risks/benefits/alternatives of medications and procedures, and plan of care generally. The patient expressed understanding and wishes to proceed. Recommendations: -- aggressive volume and electrolyte management -- continue proton pump inhibitor -- upper endoscopy Monday -- clear liquid diet as tolerated -- aggressive nutritional management both during this admission and after discharge -- consider initiation of TPN if patient is unable to tolerate PO intake -- thank you for this consultation. Dr. Kim will assume G.I. care for this patient tomorrow.
[2017-03-26] MEDS: tiZANidine 4 MG TABLET PO SCH (21:10)
[2017-03-26] MEDS ORDERED: SODIUM CHLORIDE 0.9% 1,000 ML IV ONE (23:41)
[2017-03-27 00:25] LABS: Basophils % 0.5 % (0.0-0.8); Eosinophils # 0.1 10*3/uL (0.0-0.87); Eosinophils % 1.1 % (0.00-10.9); Hematocrit 26.6 VOL% (35.7-47.0); Hemoglobin 8.5 GM/DL (12.0-16.0); Immature Granulocytes % 0.3 %; Immature Granulocytes Absolute 0.02 #; Lymphocytes # 0.9 10*3/uL (1.4-4.0); Lymphocytes % 14.6 % (21.3-54.2); Mean Corpuscular Hemoglobin 28 PG (27-34); Mean Corpuscular Volume 88.7 FL (87-102); Mean Platelet Volume 8.7 FL (9.6-12.0); Monocytes # 0.4 10*3/uL (0.11-0.8); Monocytes % 6.8 % (1.7-12.7); Neutrophils # 4.7 10*3/uL (1.4-7.4); Neutrophils % 76.7 % (38.7-73.9); Platelet Count 444 T/CUMM (130-400); Red Cell Distribution Width 14.4 % (9.3-17.3); White Blood Count 6.2 T/CUMM (4-12)
[2017-03-27] MEDS ORDERED: SODIUM CHLORIDE 0.9% 1,000 ML IV ONE (01:40)
[2017-03-27] MEDS: POTASSIUM CHLORIDE INJ 20 MEQ in SODIUM CHLORIDE 0.45% 1,000 ML IV SCH (01:53)
[2017-03-27] MEDS: ALUM/MAG/SIMETH/LIDO VISC 1:1 30 ML BOTTLE PO SCH ×5 (05:01→21:31)
[2017-03-27] MEDS: SUCRALFATE 1 GM/10 ML UDCUP PO SCH ×2 (07:53→15:34)
[2017-03-27] MEDS: HYDROmorphone 2 MG/1 ML VIAL IV PRN ×4 (08:00→21:17)
[2017-03-27] MEDS: PANTOPRAZOLE 40 MG TABLET PO SCH (08:17)
[2017-03-27] MEDS: DOCUSATE SODIUM 100 MG CAPSULE PO SCH ×2 (08:17→21:17)
[2017-03-27] MEDS: PROMETHAZINE 25 MG TABLET PO SCH (08:17)
[2017-03-27] MEDS: LEVOTHYROXINE 75 MCG TABLET PO SCH (08:17)
[2017-03-27] MEDS: PROMETHAZINE 25 MG/1 ML VIAL IM PRN ×3 (10:30→21:20)
[2017-03-27] MEDS ORDERED: fentaNYL 100 MCG/2 ML VIAL ONE (11:48)
[2017-03-27] MEDS ORDERED: PROPOFOL 200 MG/20 ML VIAL IV ONE (12:18)
[2017-03-27] MEDS ORDERED: LIDOCAINE 2% 5 ML VIAL ONE (12:18)
--- NOTE | 2017-03-27 12:27 | History and Physical Update ---
History and Physical Update - Physical Exam Mental Status: alert and oriented Heart: regular rate and rhythm Lung: clear to auscultation Abdomen: within normal limits Vitals: within normal limits
--- NOTE | 2017-03-27 12:30 | Operative Note ---
Date of procedure: 03/27/17 Pre-op diagnosis: Abdominal pain with weight loss and nausea and vomiting Procedure: EGD 51-year-old female with persistent abdominal pain weight loss nausea and vomiting has a reported history of partial gastrectomy in the past. She is now for upper endoscopy to further evaluate. Informed symptoms obtained the patient She was sedated with MAC anesthesia per anesthesia protocol. Patient placed left lateral decubitus position the Olympus flexible video upper endoscope is her lower cavity under direct vision the esophagus intubated. Findings: Esophagus-normal esophageal mucosa with no evidence of esophagitis stricture or varices or Griffith's. Stomach-partial gastrectomy with approximately 35% stomach remaining. It appears she has a Amor-en-Y anastomosis with a blind limb as well as the intact jejunum. There is significant ulceration involving the circumferential area of the anastomosis almost 360. [address] are in place the appear to be endoclips that were placed previously I am unsure of when. Remaining small intestine appears normal beyond this area raising question of ischemia. No bleeding was observed The procedure terminated placed our procedure well Postop diagnosis: 1. Ulceration at gastrojejunal anastomosis question ischemic versus nonsteroidal versus acid peptic. Continue with IV PPI treatment. This likely will require surgical revision. We will try to ascertain were previous endoscopy were done and prior existing clips were placed and when. Anesthesia: MAC Surgeon / Physician: Jason Kim Estimated blood loss: none Specimens: none sent Condition: stable Disposition: post procedure unit Results - Labs CBC & BMP: 03/26/17 23:52 03/25/17 06:07 Discharge Plan - Discharge Medications No Action Promethazine Tab [Phenergan Tab] 25 mg PO DAILY Pantoprazole Tab [Protonix Tab] 40 mg PO DAILY Butalb/Acetaminophen/Caffeine [Qblvcs-Ieaoghjk-Xicv 50-325-40] 1 each PO Q4H PRN PRN Reason: Migrane fentaNYL 25 MCG/HR PATCH [Duragesic 25 Patch] 1 each TRANSDERM Q3DAY Albuterol Sulfate [Proair HFA] 90 mcg INH QID PRN PRN Reason: shortness of breath Sucralfate Liquid [Carafate Liquid] 1 gm PO QID tiZANidine [Zanaflex] 4 mg PO BEDTIME Levothyroxine Tab [Synthroid Tab] 75 mcg PO DAILY - Follow Up or Referral - Forms/Instructions
--- NOTE | 2017-03-27 12:31 | Anesthesia Post-Op ---
Anesthesia Post OP - Post Ansesthetic Evaluation Patient seen in post op: Yes Resp: within normal limits CV: within normal limits Mental: within normal limits Temp: within normal limits Apez-So-Aqcxnmxht: within normal limits Nausea and Vomiting: within normal limits Pain: within normal limits
[2017-03-27] MEDS: PANTOPRAZOLE 40 MG VIAL IV SCH ×2 (13:07→21:15)
--- NOTE | 2017-03-27 14:35 | Hospitalist Progress Note ---
Assessment and Plan (1) Acute gastrojejunal anastomotic ulcer Status: Acute Assessment and plan: We will continue PPI as recommended by GI. General surgery already following Current Visit: Yes (2) Anemia Status: Acute Assessment and plan: Noted to drop hemoglobin hematocrit from admission after initially revised yesterday we will continue to follow. Iron deficiency noted Current Visit: Yes Hospitalist: Subjective Interval history: Ms. Mcneil is a 51 year old female with past medical history significant for chronic back pain and abdominal pain who presents with a several month history of abdominal pain. She says for the past 4 months she has lost 50 pounds. She has history of Amor-en-y gastric bypass in 1999. She did lose weight after the gastric bypass. Last year in February she was evaluated and [facility] for abdominal pain and had CT scan abdomen. Patient was admitted on 03/24/[address] scan of the abdomen and apart from noted urinary bladder distention there was no significant finding. Prominent intrahepatic and extrahepatic ducts was reported to mild degree with past history of cholecystectomy. She was seen by neurosurgery and no surgical intervention planned. Patient was seen by GI and underwent EGD today 03/27/2017. EGD reported to have a Ulceration at gastrojejunal anastomosis question ischemic versus nonsteroidal versus acid peptic. Patient continued to have abdominal pain she denies use of NSAIDs alcohol or history of smoking. PPI was recommended but likely requirement for surgical revision. Exam - Constitutional Vitals: Period Temp Pulse Resp BP Sys/Mann Pulse Ox Last 24 Hr 97.3 F-98.4 F 62-109 16-21 80-174/52-92 93-100 General appearance: no acute distress - Respiratory Respiratory exam: Present: clear to auscultation bilaterally. Absent: rales, rhonchi - Cardiovascular Cardiovascular exam: Present: regular rate and rhythm. Absent: tachycardia - GI/Abdominal GI/Abdominal exam: Present: normal bowel sounds, distended (Mild distention may be present but I have not seen her before today's examination), tenderness ( Mild discomfort/tenderness on abdominal palpation diffusely), soft - Neurological Exam Neurological exam: Present: alert, oriented X3 Results - Labs CBC & BMP: 03/26/17 23:52 03/25/17 06:07 Lab Results: I have reviewed the past 24 hour labs Quality Measures - VTE Contraindication to Pharmacological VTE Prophylaxis: Active Bleeding
[2017-03-27] MEDS: SODIUM CHLOR 0.45% KCL 20 MEQ 20 MEQ/1,000 ML BAG IV SCH (17:22)
[2017-03-27] MEDS: FERROUS SULFATE 325 MG TABLET PO SCH (21:17)
[2017-03-27] MEDS: tiZANidine 4 MG TABLET PO SCH (21:17)
[2017-03-28] MEDS: ALUM/MAG/SIMETH/LIDO VISC 1:1 30 ML BOTTLE PO SCH ×7 (00:24→20:28)
[2017-03-28] MEDS: HYDROmorphone 2 MG/1 ML VIAL IV PRN ×5 (01:08→20:21)
[2017-03-28] MEDS: SODIUM CHLOR 0.45% KCL 20 MEQ 20 MEQ/1,000 ML BAG IV SCH ×3 (01:16→12:07)
[2017-03-28] MEDS: PROMETHAZINE 25 MG/1 ML VIAL IM PRN ×4 (06:07→20:19)
[2017-03-28 06:36] LABS: Basophils % 0.4 % (0.0-0.8); Eosinophils # 0.1 10*3/uL (0.0-0.87); Eosinophils % 1.7 % (0.00-10.9); Hematocrit 29.6 VOL% (35.7-47.0); Hemoglobin 9.4 GM/DL (12.0-16.0); Immature Granulocytes % 0.4 %; Immature Granulocytes Absolute 0.03 #; Lymphocytes # 1.3 10*3/uL (1.4-4.0); Lymphocytes % 18.4 % (21.3-54.2); Mean Corpuscular HGB Conc 31.8 GM/DL (32-36); Mean Corpuscular Hemoglobin 28 PG (27-34); Mean Corpuscular Volume 87.3 FL (87-102); Mean Platelet Volume 8.9 FL (9.6-12.0); Monocytes # 0.6 10*3/uL (0.11-0.8); Monocytes % 8.3 % (1.7-12.7); Neutrophils % 70.8 % (38.7-73.9); Platelet Count 421 T/CUMM (130-400); Red Blood Count 3.39 MC/CUMM (3.8-5.5); Red Cell Distribution Width 14.6 % (9.3-17.3)
[2017-03-28 07:04] LABS: Calcium 8.5 MG/DL (8.5-10.1); Osmolality,Calculated 272.5 MOS/KG (273-304); Potassium 5.2 MMOL/L (3.5-5.1)
[2017-03-28] MEDS: PANTOPRAZOLE 40 MG VIAL IV SCH ×2 (08:18→20:17)
[2017-03-28] MEDS: DOCUSATE SODIUM 100 MG CAPSULE PO SCH ×2 (08:18→20:24)
[2017-03-28] MEDS: LEVOTHYROXINE 75 MCG TABLET PO SCH (08:18)
[2017-03-28] MEDS: SUCRALFATE 1 GM/10 ML UDCUP PO SCH ×2 (08:18→15:38)
[2017-03-28] MEDS: FERROUS SULFATE 325 MG TABLET PO SCH ×2 (08:18→20:24)
[2017-03-28] MEDS: PROMETHAZINE 25 MG TABLET PO SCH (08:18)
--- NOTE | 2017-03-28 10:29 | Gastrointestinal Progress Note ---
<Corry Vidales - Last Filed: 03/28/17 10:25> Assessment and Plan (1) Abdominal pain Status: Chronic Assessment and plan: 03/28-EGD findings noted as below. No reports of nausea or vomiting at present. Diet noted to be advanced this morning. Continue to monitor how patient tolerates. Plan an addendum to follow by Dr. Kim. Current Visit: Yes Gastroenterology - PN: Subj Interval history: CC: Abdominal pain, weight loss, nausea vomiting Pt is awake and alert sitting up in bed. She is post EGD on yesterday with findings of ulceration at the GE anastomosis. She states she has not had any nausea or vomiting since yesterday and has tolerated a small amount of her diet. She is requesting to advance her diet some at this time and see how she can tolerate this as well. Abdomen is soft, nontender. ROS: Denies shortness of breath or chest pain Exam (Progress Note) - Constitutional Vitals: Period Temp Pulse Resp BP Sys/Mann Pulse Ox Last 24 Hr 97.5 F-98.6 F 61-109 16-22 107-174/68-92 96-100 General appearance: normal weight, no acute distress - Head Head exam: Present: normal inspection, normocephalic - Eye Eye exam: Present: other (Lids and conjunctive are unremarkable). Absent: scleral icterus - ENT ENT exam: Present: normal exam, normal oropharynx - Neck Neck exam: Present: normal inspection - Respiratory Respiratory exam: Present: clear to auscultation bilaterally. Absent: rales, rhonchi, wheezes - Cardiovascular Cardiovascular exam: Present: regular rate and rhythm. Absent: diastolic murmur , JVD, systolic murmur - GI/Abdominal GI/Abdominal exam: Present: normal bowel sounds, soft. Absent: ascites, distended, mass, organomegaly, tenderness - Extremities Exam Extremities exam: Present: normal inspection, full ROM - Back Exam Back exam: Present: normal inspection - Neurological Exam Neurological exam: Present: alert, oriented X3 - Psychiatric Psychiatric exam: Present: normal affect, normal mood - Skin Skin exam: Present: normal color, warm, dry Results - Labs CBC & BMP: 03/28/17 05:52 03/28/17 05:52 Lab Results: I have reviewed the past 24 hour labs <Jason Kim - Last Filed: 03/28/17 19:04> Exam (Progress Note) - Constitutional Vitals: Period Temp Pulse Resp BP Sys/Mann Pulse Ox Last 24 Hr 98.0 F-99.7 F 61-97 18-20 116-149/70-92 94-99 Results - Labs CBC & BMP: 03/28/17 05:52 03/28/17 05:52
--- NOTE | 2017-03-28 15:20 | Hospitalist Progress Note ---
Assessment and Plan (1) Acute gastrojejunal anastomotic ulcer Status: Acute Assessment and plan: We will continue PPI as recommended by GI. Will increase the dose of Dilaudid as pain is not controlled according to patient. I will ask for the soft diet. She is also on Carafate which will be continued. Let us see if she can tolerate the soft diet so we can have a plan to follow her up with the surgeon who is not in this town Current Visit: Yes (2) Anemia Status: Acute Assessment and plan: We will continue to monitor stable from admission Current Visit: Yes Hospitalist: Subjective Interval history: Ms. Mcneil is a 51 year old female with past medical history significant for chronic back pain and abdominal pain who presents with a several month history of abdominal pain. She says for the past 4 months she has lost 50 pounds. She has history of Amor-en-y gastric bypass in 1999. She did lose weight after the gastric bypass. Last year in February she was evaluated and [facility] for abdominal pain and had CT scan abdomen. Patient was admitted on 03/24/[address] scan of the abdomen and apart from noted urinary bladder distention there was no significant finding. Prominent intrahepatic and extrahepatic ducts was reported to mild degree with past history of cholecystectomy. She was seen by surgery and no surgical intervention planned. Patient was seen by GI and underwent EGD today 03/27/2017. EGD reported to have a Ulceration at gastrojejunal anastomosis question ischemic versus nonsteroidal versus acid peptic. Patient continued to have abdominal pain she denies use of NSAIDs alcohol or history of smoking. PPI was recommended but likely requirement for surgical revision. Patient still has some abdominal pain in the right left quadrant particularly. She tried the advance diet to solid but could not tolerate it and reports she has vomited about 3 times. She is able to drink fluid Exam - Constitutional Vitals: Period Temp Pulse Resp BP Sys/Mann Pulse Ox Last 24 Hr 98.0 F-98.6 F 61-85 18-22 107-127/68-92 94-99 General appearance: no acute distress - Respiratory Respiratory exam: Present: clear to auscultation bilaterally. Absent: rales, rhonchi - Cardiovascular Cardiovascular exam: Present: regular rate and rhythm. Absent: tachycardia - GI/Abdominal GI/Abdominal exam: Present: normal bowel sounds, distended (Mild distention may be present but I have not seen her before today's examination), tenderness ( Mild discomfort/tenderness on abdominal palpation diffusely), soft - Neurological Exam Neurological exam: Present: alert, oriented X3 Results - Labs CBC & BMP: 03/28/17 05:52 03/28/17 05:52 Lab Results: I have reviewed the past 24 hour labs Quality Measures - VTE Contraindication to Pharmacological VTE Prophylaxis: Active Bleeding
[2017-03-28] MEDS: DEXTROSE 5% NACL 0.45% 1,000 ML IV SCH (15:37)
[2017-03-28] MEDS: tiZANidine 4 MG TABLET PO SCH (20:24)
[2017-03-29] MEDS: HYDROmorphone 2 MG/1 ML VIAL IV PRN ×5 (01:09→21:05)
[2017-03-29] MEDS: PROMETHAZINE 25 MG/1 ML VIAL IM PRN ×3 (01:14→21:05)
[2017-03-29] MEDS: DEXTROSE 5% NACL 0.45% 1,000 ML IV SCH ×2 (01:37→11:51)
[2017-03-29] MEDS: ALUM/MAG/SIMETH/LIDO VISC 1:1 30 ML BOTTLE PO SCH ×4 (01:47→18:23)
[2017-03-29 06:09] LABS: Hemoglobin 9.8 GM/DL (12.0-16.0)
--- NOTE | 2017-03-29 08:51 | Gastrointestinal Progress Note ---
<SobeidaCorry Korin - Last Filed: 03/29/17 08:48> Assessment and Plan (1) Abdominal pain Status: Chronic Assessment and plan: 03/29-continued abdominal pain with nausea vomiting with meals since yesterday. Consider surgical consult at this time due to persistence in symptoms. Plan an addendum to follow by Dr. Kim peer 03/28-EGD findings noted as below. No reports of nausea or vomiting at present. Diet noted to be advanced this morning. Continue to monitor how patient tolerates. Plan an addendum to follow by Dr. Kim. Current Visit: Yes Gastroenterology - PN: Subj Interval history: CC: Abdominal pain Patient is seen awake and alert, just finished breakfast. She is complaining of some abdominal pain and discomfort as well as nausea and trying to keep from vomiting her breakfast this morning. She states that she has had difficulty keeping down most of her meals. She did have some watery stools on yesterday. Abdomen is soft, mild tenderness to palpation. ROS: Denies shortness of breath or chest pain Exam (Progress Note) - Constitutional Vitals: Period Temp Pulse Resp BP Sys/Mann Pulse Ox Last 24 Hr 97.7 F-99.7 F 84-101 16-20 99-149/65-92 94-98 General appearance: normal weight, no acute distress - Head Head exam: Present: normal inspection, normocephalic - Eye Eye exam: Present: other (Lids and conjunctive are unremarkable). Absent: scleral icterus - ENT ENT exam: Present: normal exam, normal oropharynx - Neck Neck exam: Present: normal inspection - Respiratory Respiratory exam: Present: clear to auscultation bilaterally. Absent: rales, rhonchi, wheezes - Cardiovascular Cardiovascular exam: Present: regular rate and rhythm. Absent: diastolic murmur , JVD, systolic murmur - GI/Abdominal GI/Abdominal exam: Present: normal bowel sounds, tenderness, soft. Absent: ascites, distended, mass, organomegaly - Extremities Exam Extremities exam: Present: normal inspection, full ROM - Back Exam Back exam: Present: normal inspection - Neurological Exam Neurological exam: Present: alert, oriented X3 - Psychiatric Psychiatric exam: Present: normal affect, normal mood - Skin Skin exam: Present: normal color, warm, dry Results - Labs CBC & BMP: 03/29/17 05:13 03/28/17 05:52 Lab Results: I have reviewed the past 24 hour labs <Jason Kim - Last Filed: 03/29/17 18:34> Exam (Progress Note) - Constitutional Vitals: Period Temp Pulse Resp BP Sys/Mann Pulse Ox Last 24 Hr 97.7 F-99.5 F 74-101 16-20 81-136/53-85 94-98 Results - Labs CBC & BMP: 03/29/17 05:13 03/28/17 05:52
--- NOTE | 2017-03-29 09:27 | Event Note ---
The patient has had endoscopy which demonstrated an ulcer at her anastomosis from her gastric bypass. There are no surgeons in [place] who handled these types of problems and the patient needs to be managed surgically by someone who does bariatric surgery and specifically some he does revisional gastric bypass. I am not the person for this job. There is nothing I can offer this patient because this is outside my scope of practice. Please call back with any further questions or new issues that arise but it is my opinion that she needs to be referred outside of [place] to have this problem dealt with.
[2017-03-29] MEDS: SUCRALFATE 1 GM/10 ML UDCUP PO SCH (09:38)
[2017-03-29] MEDS: DOCUSATE SODIUM 100 MG CAPSULE PO SCH ×2 (09:38→21:05)
[2017-03-29] MEDS: LEVOTHYROXINE 75 MCG TABLET PO SCH (09:38)
[2017-03-29] MEDS: PROMETHAZINE 25 MG TABLET PO SCH (09:38)
[2017-03-29] MEDS: FERROUS SULFATE 325 MG TABLET PO SCH ×2 (09:38→21:04)
[2017-03-29] MEDS: PANTOPRAZOLE 40 MG VIAL IV SCH ×2 (09:38→21:04)
--- NOTE | 2017-03-29 13:01 | Hospitalist Progress Note ---
Assessment and Plan (1) Acute gastrojejunal anastomotic ulcer Status: Acute Assessment and plan: Continue PPI and analgesic. Since patient has not been able to tolerate food and and there is persistent, I have made the call to Dr. Dany Thorpe and waiting for the response Current Visit: Yes (2) Anemia Status: Acute Assessment and plan: We will continue to monitor , hemoglobin hematocrit is grossly stable from admission stable from admission Current Visit: Yes Hospitalist: Subjective Interval history: Ms. Mcneil is a 51 year old female with past medical history significant for chronic back pain and abdominal pain who presents with a several month history of abdominal pain. She says for the past 4 months she has lost about 50 pounds. She has history of Amor-en-y gastric bypass in 1999. About 5 years ago she has developed ulcer and did require a additional surgery at the [facility]. Both the surgeon probably did the original bypass surgery and surgery and [facility] have moved out. She has seen Dr. Dany Thorpe for follow-up and has not seen in the last 2 years. Patient has been here on the pain medications currently on Dilaudid. She underwent evaluation by general surgery and GI. EGD performed 03/27/2017 and was noted to have ulceration at the gastro jejunal anastomosis site. She has been on the PPI IV. She continued to have pain localized to left upper abdomen. This is associated vomiting in her oral intake is poor. She has been able to tolerate some grades and toast this morning. Patient is recommended to see a surgeon who performed bariatric surgery for further evaluation of her ulcer. Patient gave me the number of Dr. Dany Thorpe. I have made the call talk to the nursing left a message Exam - Constitutional Vitals: Period Temp Pulse Resp BP Sys/Mann Pulse Ox Last 24 Hr 97.7 F-99.7 F 84-101 16-20 99-149/65-92 94-98 General appearance: no acute distress - Respiratory Respiratory exam: Present: clear to auscultation bilaterally. Absent: rales, rhonchi - Cardiovascular Cardiovascular exam: Present: regular rate and rhythm. Absent: tachycardia - GI/Abdominal GI/Abdominal exam: Present: normal bowel sounds, distended (Mild distention may be present but I have not seen her before today's examination), tenderness ( Mild discomfort/tenderness on abdominal palpation diffusely), soft - Neurological Exam Neurological exam: Present: alert, oriented X3 Results - Labs CBC & BMP: 03/29/17 05:13 03/28/17 05:52 Lab Results: I have reviewed the past 24 hour labs Quality Measures - VTE Contraindication to Pharmacological VTE Prophylaxis: Active Bleeding
[2017-03-29] MEDS: SUCRALFATE 1 GM/10 ML UDCUP NG SCH (18:23)
[2017-03-29] MEDS: tiZANidine 4 MG TABLET PO SCH (21:04)
[2017-03-30] MEDS: DEXTROSE 5% NACL 0.45% 1,000 ML IV SCH ×2 (00:13→09:49)
[2017-03-30] MEDS: SUCRALFATE 1 GM/10 ML UDCUP NG SCH ×3 (00:29→12:54)
[2017-03-30] MEDS: ALUM/MAG/SIMETH/LIDO VISC 1:1 30 ML BOTTLE PO SCH ×3 (00:29→12:54)
[2017-03-30] MEDS: HYDROmorphone 2 MG/1 ML VIAL IV PRN ×3 (01:26→10:05)
[2017-03-30] MEDS: PROMETHAZINE 25 MG/1 ML VIAL IM PRN ×2 (01:26→06:04)
[2017-03-30 07:16] LABS: Hematocrit 30.7 VOL% (35.7-47.0); Hemoglobin 9.8 GM/DL (12.0-16.0)
[2017-03-30] MEDS: PROMETHAZINE 25 MG TABLET PO SCH (09:50)
[2017-03-30] MEDS: PANTOPRAZOLE 40 MG VIAL IV SCH (09:50)
[2017-03-30] MEDS: FERROUS SULFATE 325 MG TABLET PO SCH (09:50)
[2017-03-30] MEDS: LEVOTHYROXINE 75 MCG TABLET PO SCH (09:50)
[2017-03-30] MEDS: DOCUSATE SODIUM 100 MG CAPSULE PO SCH (09:51)
--- NOTE | 2017-03-30 12:11 | Hospitalist Progress Note ---
Assessment and Plan (1) Acute gastrojejunal anastomotic ulcer Status: Acute Assessment and plan: Continue PPI and Carafate with switch to p.o. PPI. Will also switch to p.o. analgesic. She need to call Dr. Smith office for appointment Current Visit: Yes (2) Anemia Status: Acute Assessment and plan: Hemoglobin hematocrit is stable Current Visit: Yes Hospitalist: Subjective Interval history: Ms. Mcneil is a 51 year old female with past medical history significant for chronic back pain and abdominal pain who presents with a several month history of abdominal pain. She says for the past 4 months she has lost about 50 pounds. She has history of Amor-en-y gastric bypass in 1999. About 5 years ago she has developed ulcer and did require a additional surgery at the [facility]. Both the surgeon probably did the original bypass surgery and surgery and [facility] have moved out. She has seen Dr. Dany Thorpe for follow-up and has not seen in the last 2 years. Patient has been here on the pain medications currently on Dilaudid. She underwent evaluation by general surgery and GI. EGD performed 03/27/2017 and was noted to have ulceration at the gastro jejunal anastomosis site. She has been on the PPI IV. Patient is recommended to see a surgeon who performed bariatric surgery for further evaluation of her ulcer. I called Dr. Dany Thorpe yesterday and he did not call later in the afternoon. He agreed to continue on the Carafate but increased to 4 times a day and continue PPI. She will continue to have pain in left upper abdomen. Although she subjectively reported fever there was no objective temperature record show she had fever. I have updated her about my conversation with Dr. Thorpe and that she has to call the number she provided to me for appointment. She requested to have stay for 1 more day. I think it would be good for transition to p.o. regimen Exam - Constitutional Vitals: Period Temp Pulse Resp BP Sys/Mann Pulse Ox Last 24 Hr 97.0 F-99.2 F 80-98 18-19 81-151/53-85 94-98 General appearance: no acute distress - Respiratory Respiratory exam: Present: clear to auscultation bilaterally. Absent: rales, rhonchi - Cardiovascular Cardiovascular exam: Present: regular rate and rhythm. Absent: tachycardia - GI/Abdominal GI/Abdominal exam: Present: normal bowel sounds, tenderness (Tenderness in left upper abdomen with some guarding no rigidity), soft. Absent: ascites, distended - Neurological Exam Neurological exam: Present: alert, oriented X3 Results - Labs CBC & BMP: 03/30/17 05:43 03/28/17 05:52 Lab Results: I have reviewed the past 24 hour labs Quality Measures - VTE Contraindication to Pharmacological VTE Prophylaxis: Active Bleeding
[2017-03-30] MEDS ORDERED: ONDANSETRON 4 MG TABLET PO PRN (12:15)
[2017-03-30] MEDS ORDERED: PANTOPRAZOLE 40 MG TABLET PO SCH (12:30)
[2017-03-30 15:34] VITALS: BP 104/69
--- NOTE | 2017-03-30 16:30 | Discharge Summary ---
Hospital Course - Hospital Course Hospital Course: Ms. Mcneil is a 51 year old female with past medical history significant for chronic back pain and abdominal pain who presents with a several month history of abdominal pain. She says for the past 4 months she has lost about 50 pounds. She has history of Amor-en-y gastric bypass in 1999. About 5 years ago she has developed ulcer and did require a additional surgery at the [facility]. Both the surgeon probably did the original bypass surgery and surgery and [facility] have moved out. She has seen Dr. Dany Thorpe for follow-up and has not seen in the last 2 years. Patient has been here on the pain medications currently on Dilaudid. She underwent evaluation by general surgery and GI. EGD performed 03/27/2017 and was noted to have ulceration at the gastro jejunal anastomosis site. She has been on the PPI IV. Patient is recommended to see a surgeon who performed bariatric surgery for further evaluation of her ulcer. I called Dr. Dany Thorpe yesterday and spoke to him he recommended to continue PPI avoid NSAIDs and Carafate at least 4 g daily in suspension form. Patient was explained that she was advised to call Dr. Vyas for appointment after discharge. She requested the morning that the she stay tonight and then go in the morning. He had been put on p.o. analgesics and PPI. I got called from the nursing staff that she would like to go home. I went to see her and talk to her. She told me that they have a place in [place]/[facility] with thick she cannot stay over the weekend and see Dr. Thorpe from there. I asked if she has called made call to make appointment she told me that she is going to do this tomorrow. She still has pain but appears comfortable without any distress she is not vomiting actively she says she is been able to tolerate some soft food and holding it. Her hemoglobin hematocrit has been stable. She is discharged and has to continue the medication as advised. I have given her a prescription for as needed oxycodone/acetaminophen until she see her physician in follow-up with Dr. Dany Thorpe. Diagnosis - Discharge Diagnosis (1) Acute gastrojejunal anastomotic ulcer Status: Acute (2) Anemia Status: Acute Discharge Plan - Discharge Data Disposition: Disch To Home/Self Care Condition at Discharge: Stable Discharge Diet: other (Soft diet advance as tolerated) Activity: resume usual activities as tolerated - Discharge Medications New oxyCODONE/ACETAMINOPHEN 5-325 [Percocet 5-325] 1 tablet PO Q4H PRN #20 tablet PRN Reason: Pain Moderate (4-7) Pantoprazole Tab [Protonix Tab] 40 mg PO BID tablet Ferrous Sulfate Tab [Feosol Original Tab] 325 mg PO BID tablet Sucralfate Liquid [Carafate Liquid] 1 gm NG Q6HR #500 mls Continue Promethazine Tab [Phenergan Tab] 25 mg PO DAILY Pantoprazole Tab [Protonix Tab] 40 mg PO DAILY Butalb/Acetaminophen/Caffeine [Cwrrqo-Fgxpgmwp-Ifno 50-325-40] 1 each PO Q4H PRN PRN Reason: Migrane fentaNYL 25 MCG/HR PATCH [Duragesic 25 Patch] 1 each TRANSDERM Q3DAY Albuterol Sulfate [Proair HFA] 90 mcg INH QID PRN PRN Reason: shortness of breath Sucralfate Liquid [Carafate Liquid] 1 gm PO QID tiZANidine [Zanaflex] 4 mg PO BEDTIME Levothyroxine Tab [Synthroid Tab] 75 mcg PO DAILY - Follow Up or Referral - Forms/Instructions Instructions: Peptic Ulcer (DC), Diet for Ulcers and Gastritis (GEN), Anemia ( DC) Exam - Constitutional Vitals: Period Temp Pulse Resp BP Sys/Mann Pulse Ox Last 24 Hr 97.0 F-99.2 F 80-98 18-18 104-151/66-85 94-98 Please see today's progress note Discharge Results Labs on day of discharge: Labs from last 24 hours 03/30/17 05:43 Hgb 9.8 L Hct 30.7 L DS: Provider Date of admission: 03/24/17 18:48 Primary care physician: . No PCP Attending physician on admission: Marcellus Presley MD Consults: 03/24/17 18:48 Consult to Physician [CONS] Routine Comment: heme postive stool and abdominal pain Consulting Provider: Jason Kim Consult to Specialist Group: Gastroenterology When should Consulting Provider be notified: In am Person Notified: MELVI Santamaria Date Notified: 03/27/17 Time Notified: 10:46 03/24/17 21:39 Consult to Dietitian [CONS] Routine Reason for Dietitian: Dietary Consult Consult Comment: decreased appettie 03/25/17 07:54 Consult to Physician [CONS] Routine Comment: acute abdomen Consulting Provider: Bear Flores When should Consulting Provider be notified: Now 03/28/17 10:29 Consult to Dietitian [CONS] Routine Reason for Dietitian: Dietary Consult Discharging clinician: Reagan Meier MD
== END 2017-03-30 17:24 | disposition home or self-care (01) | DRG 394 ==
LOC: EDUNIT# → EDBD → N.ED 15:56 → SUATTDRO 18:48 → N.EDINP 18:48 → N.5E 19:53
PROVIDERS: ADMIT Internal Medicine; ATTEND Internal Medicine